=== PATIENT | female | born 1960 | race Caucasian/White ===

== ENCOUNTER 2025-04-21 07:17 | Emergency (ER) | payer MEDICARE, BC ==
[2025-04-21 07:55] LABS: BASOPHILS PERCENT AUTO 0.2 % (0.1-1.3); EOSINOPHILS ABSOLUTE AUTO 0.11 K/uL (0.00-0.40); EOSINOPHILS PERCENT AUTO 0.9 % (0.0-5.4); IMMATURE GRAN ABSOLUTE AUTO 0.06 K/uL (0.00-0.23); IMMATURE GRAN PERCENT AUTO 0.5 % (0.0-0.7); LYMPHOCYTES ABSOLUTE AUTO 1.38 K/uL (0.8-3.3); LYMPHOCYTES PERCENT AUTO 10.8 % (11.4-47.7); MONOCYTES ABSOLUTE AUTO 0.95 K/uL (0.20-0.90); MONOCYTES PERCENT AUTO 7.4 % (3.3-12.6); NEUTROPHILS ABSOLUTE AUTO 10.26 K/uL (1.0-7.6); NEUTROPHILS PERCENT AUTO 80.2 % (40.0-78.1); PLATELET COUNT,PLT 247 K/uL (130-375); RED BLOOD CELL COUNT 3.90 M/uL (3.77-5.24); WHITE BLOOD CELL COUNT,WBC 12.8 K/uL (3.2-11.0)
[2025-04-21 07:56] LABS: BASOPHILS ABSOLUTE AUTO 0.02 K/uL (0.00-0.10)
[2025-04-21] MEDS: Nitroglycerin 0.4 MG Tab.SL SL PRN (08:07)
[2025-04-21 08:23] LABS: CHLORIDE,CL 102 mmol/L (100-108); POTASSIUM,K 4.5 mmol/L (3.6-5.2); SODIUM,NA 137 mmol/L (140-148)
[2025-04-21 08:24] LABS: A/G RATIO 1.1 (1.2-2.2); ALANINE AMINOTRANSFERASE,ALT 16 U/L (12-78); ASPARTATE AMNIOTRANSFERASE,AST 18 U/L (15-37); BILIRUBIN TOTAL 0.4 mg/dL (0.2-1.0); BLOOD UREA NITROGEN,BUN 19 mg/dL (7-18); CARBON DIOXIDE,CO2 26 mmol/L (21-32); CREATININE 1.1 mg/dL (0.6-1.0); EST CRCL DRUG DOSING (CG) 39.63 mL/min; ESTIMATED GFR 55 mL/min (>60); GLUCOSE RANDOM 142 mg/dL (74-106); PROTEIN TOTAL,TP 6.8 g/dL (6.4-8.2)
[2025-04-21] MEDS: Ondansetron 4 MG/2 ML SDV IVPUSH ONE (08:44)
[2025-04-21] MEDS: Iopamidol 755 Mg/ML 100 ML Bottle IV SCH (11:31)
[2025-04-21] MEDS: Sodium Chloride 0.9% 10 ML Syringe FLUSH ONE (11:31)
== END 2025-04-21 13:30 | disposition home or self-care (01) ==
LOC: JP.ED 07:17
DX: R07.89 Other chest pain (principal); Z95.0 Presence of cardiac pacemaker; E86.0 Dehydration; Z88.8 Allergy status to other drugs, medicaments and biological substances; Z79.899 Other long term (current) drug therapy
CPT/HCPCS: 36415; 71045; 71275; 80053; 83880; 84484; 85025; 93005; 93010; 96361; 96374; 96375; 99284; 99285; A9270; J2270; J2405; J7030; Q9967